=== PATIENT | female | born 1970 | race American Indian/Alaskan Native ===

== ENCOUNTER 2017-04-03 14:28 | Emergency (ER) | payer OTHER ==
[2017-04-03 14:38] VITALS: BP 146/78
[2017-04-03] MEDS ORDERED: DUONEB *Not for PRN Use IH ONE (14:39)
[2017-04-03 15:10] LABS: Basophils % (Auto) 0.2 % (0.0-1.8); Hematocrit 42.2 % (30.3-42.9); Hemoglobin 14.8 gm/dl (10.1-14.3); Mean Corpuscular HGB Conc 35 % (30-34); Mean Corpuscular Hemoglobin 33 pg (28-32); Mean Corpuscular Volume 94 fl (79-97); Platelet Count 194 K/mm3 (140-440); Red Blood Count 4.51 M/mm3 (3.65-5.03); Red Cell Distribution Width 14.1 % (13.2-15.2); White Blood Count 13.8 K/mm3 (4.5-11.0)
[2017-04-03 15:26] LABS: Anion Gap 15 mmol/L; BUN/Creatinine Ratio 11; Blood Urea Nitrogen 10 mg/dL (7-17); Carbon Dioxide 25 mmol/L (22-30); Chloride 101.7 mmol/L (98-107); Glucose 99 mg/dL (65-100); Potassium 4.1 mmol/L (3.6-5.0); Sodium 138 mmol/L (137-145)
--- NOTE | 2017-04-03 15:27 | XRay Report ---
Chest 2 views: History: Shortness of breath. Findings: Normal cardiomediastinal silhouette. Trachea is midline. No consolidation, pneumothorax or pleural effusion. Impression: No acute cardiopulmonary findings.
== END 2017-04-04 | disposition left against medical advice (07) ==
LOC: ED 14:28
DX: R06.00 Dyspnea, unspecified (principal); Z53.21 Procedure and treatment not carried out due to patient leaving prior to being seen by health care provider
CPT/HCPCS: 36415; 71020; 80048; 84484; 85025; 93005; 93010; 94640

== ENCOUNTER 2017-08-13 21:57 | Emergency (ER) | payer OTHER ==
[2017-08-13] MEDS ORDERED: PROVENTIL IH ONE (22:10)
[2017-08-13] MEDS ORDERED: DUONEB *Not for PRN Use IH ONE (22:39)
--- NOTE | 2017-08-14 00:20 | XRay Report ---
FINAL REPORT PROCEDURE: XR CHEST ROUTINE 2V TECHNIQUE: PA and lateral chest radiographs were obtained. CPT 95896 HISTORY: cough, short of breath COMPARISON: No prior studies are available for comparison. FINDINGS: Heart: Normal size. Mediastinum/Vessels: Normal. Lungs/Pleural space: Clear. Bony thorax: No acute osseous abnormality. Other: IMPRESSION: Negative examination.
--- NOTE | 2017-08-14 04:12 | Emergency Department Report ---
Minor Respiratory - HPI Chief Complaint: Upper Respiratory Infection Stated Complaint: CHARLES Time Seen by Provider: 08/14/17 04:10 Duration: 1 Day Severity: severe Minor Respiratory: Yes Able to Tolerate Fluids, Yes Cough, Yes Shortness of Breath, No Rhinorrhea, No Sore Throat, No Ear Pain, No Sick Contacts, No Hemoptysis, No Chest Pain, No Fever Other History: This is a 47 year old A.A. female that presents with SOB and cough that started yesterday. Patient reports coming here in March with the same problem. 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 She went to PCP the next day Dr. Joycelyn Jara and she started her on albuterol inhaler. She didn't run test. She is concerned somthing serious is going on because she is a former smoker. She quit smoking in 2014. She used to smoke 1.5 ppw. She started smoking at 19 years old. She used 20 pumps yesterday prior to coming into ER and still remained SOB. She is taking OTC cold and flu medication with no improvement of symptoms. Denies fever, chills, chest pain, and body aches. ED Review of Systems ROS: Stated complaint: CHARLES Other details as noted in HPI Constitutional: denies: chills, fever ENT: denies: ear pain, throat pain, congestion Respiratory: cough, shortness of breath, SOB with exertion. denies: wheezing Cardiovascular: denies: chest pain, palpitations Gastrointestinal: denies: abdominal pain, nausea, vomiting, diarrhea Neurological: denies: headache, weakness, numbness, paresthesias Psychiatric: denies: anxiety, depression ED Past Medical Hx - Past Medical History Previous Medical History?: No Additional medical history: Obesity - Surgical History Past Surgical History?: Yes Additional Surgical History: Cyst removed from ovaries 1999 - Social History Smoking Status: Former Smoker Substance Use Type: None - Medications Home Medications: Home Medications Medication Instructions Recorded Confirmed Last Taken Type Albuterol Sulfate [Ventolin HFA] 2 puff IH Q4H PRN #1 hfa.aer.ad 05/13/13 Unknown Rx Benzonatate [Tessalon Perle] 100 mg PO TID PRN #30 capsule 05/13/13 Unknown Rx Ciprofloxacin HCl [Ciprofloxacin 500 mg PO BID #20 tablet 05/13/13 Unknown Rx TAB] ALBUTEROL Inhaler [ProAir HFA 1 puff IH Q4-6H PRN #1 inha 08/14/17 Unknown Rx Inhaler] Azithromycin [Zithromax Z-FRANCISCO] 250 mg PO DAILY #6 tablet 08/14/17 Unknown Rx Montelukast [Singulair] 10 mg PO QPM #30 tablet 08/14/17 Unknown Rx Prednisone [predniSONE 10 mg 10 mg PO .TAPER #1 tab.ds.pk 08/14/17 Unknown Rx (6-Day Pack, 21 Tabs)] Minor Respiratory Exam - Exam General: Vital signs noted. No distress. Alert and acting appropriately. HEENT: Yes Moist Mucous Membranes, Yes Rhinorrhea (clear discharge), No Pharyngeal Erythema, No Pharyngeal Exudates, No Conjuctival Injection, No Frontal Tenderness, No Maxillary Tenderness Ear: Neither TM Bulge, Neither TM Erythema, Neither EAC Pain, Neither EAC Discharge Neck: Yes Supple, No Adenopathy Lungs: Yes Good Air Exchange, Yes Cough (worse on right), No Wheezes, No Ronchi , No Stridor, No Labored Respirations, No Retractions, No Use of Accessory Muscles, No Other Abnormal Lung Sounds Heart: Yes Regular, No Murmur Abdomen: Yes Normal Bowel Sounds, No Tenderness, No Peritoneal Signs Skin: No Rash, No Edema Neurologic: Alert and oriented, no deficits. Musculoskeletal: Unremarkable. ED Course Vital Signs 08/13/17 08/13/17 08/14/17 22:01 22:40 00:34 Temperature 97.7 F 98.5 F Pulse Rate 125 H 112 H 99 H Respiratory 24 20 20 Rate Blood Pressure 160/70 Blood Pressure 161/84 [Right] O2 Sat by Pulse 98 98 100 Oximetry ED Medical Decision Making - Lab Data Result diagrams: 08/14/17 05:27 08/14/17 05:27 - Radiology Data Radiology results: report reviewed IMPRESSION: Negative examination. - Medical Decision Making 47 y.o. female that presents with SOB and cough since yesterday. Similar symptoms in March. PCP started albuterol for SOB w/o diagnosis of asthma or COPD. Former smoker, quit in 2014. Patient examined by me and in slight distress. Given duoneb treatement once in ER. Ordered EKG, BMP, CBC, BMP, and CXR. WBC's slightly elevated. First EKG tachycardia. Vitals stable. Second EKG NSR. Wheezes resolved and sat 100% on room air. Asthma exacerbation, Start albuterol and prednisone taper. URI start azithromycin. Discharged home stable. Encouraged to do supportive care for URI. Follow up with PCP. Critical care attestation.: If time is entered above; I have spent that time in minutes in the direct care of this critically ill patient, excluding procedure time. ED Disposition Clinical Impression: Asthma exacerbation Qualifiers: Asthma severity: moderate Asthma persistence: unspecified Qualified Code(s): J45.901 - Unspecified asthma with (acute) exacerbation URI (upper respiratory infection) Qualifiers: URI type: acute nasopharyngitis (common cold) Qualified Code(s): J00 - Acute nasopharyngitis [common cold] Disposition: TO HOME OR SELFCARE Is pt being admited?: No Does the pt Need Aspirin: No Condition: Stable Instructions: Asthma (ED) Additional Instructions: It is important to use inhaler or have active albuterol inhaler and avoiding asthma triggers. Complete full course of prednisone steroids as prescribed. Increase fluid intake and rest. Wash hands frequently. Continue taking tylenol or ibuprofen to control fever. Return to ER if fever, SOB, or difficulty breathing after 48 hours of supportive care. Follow up with Primary Care Provider in 24-72 hours. Prescriptions: ALBUTEROL Inhaler [ProAir HFA Inhaler] 1 puff IH Q4-6H PRN #1 inha PRN Reason: Shortness Of Breath Azithromycin [Zithromax Z-FRANCISCO] 250 mg PO DAILY #6 tablet Montelukast [Singulair] 10 mg PO QPM #30 tablet Prednisone [predniSONE 10 mg (6-Day Pack, 21 Tabs)] 10 mg PO .TAPER #1 tab.ds.pk Referrals: JOYCELYN JARA MD [Primary Care Provider] - 3-5 Days [facility] [Provider Group] - 3-5 Days [facility] [Provider Group] - 3-5 Days [facility] [Provider Group] - 3-5 Days [facility] [Provider Group] - 3-5 Days Time of Disposition: 06:36 Print Language: BANGLADESHI
[2017-08-14 05:40] LABS: Hematocrit 37.6 % (30.3-42.9); Hemoglobin 12.3 gm/dl (10.1-14.3); Mean Corpuscular HGB Conc 33 % (30-34); Mean Corpuscular Hemoglobin 30 pg (28-32); Mean Corpuscular Volume 91 fl (79-97); Platelet Count 215 K/mm3 (140-440); Red Blood Count 4.14 M/mm3 (3.65-5.03); Red Cell Distribution Width 14.8 % (13.2-15.2)
[2017-08-14 05:55] LABS: BUN/Creatinine Ratio 10; Blood Urea Nitrogen 8 mg/dL (7-17); Calcium 8.6 mg/dL (8.4-10.2); Hemolysis Index 3
[2017-08-14 07:19] VITALS: BP 144/81
== END 2017-08-14 06:45 | disposition home or self-care (01) ==
LOC: ED 21:57
DX: J45.901 Unspecified asthma with (acute) exacerbation (principal); J00 Acute nasopharyngitis [common cold]; Z87.891 Personal history of nicotine dependence
CPT/HCPCS: 36415; 71046; 80048; 83880; 85027; 93005; 93010; 94640